=== PATIENT | male | born 2000 | race Caucasian/White ===

== ENCOUNTER 2022-07-02 02:47 | Emergency (ER) | payer OTHER ==
[~2022-07-02] VITALS: Ht 188 cm; Wt 97.7 kg
[2022-07-02 02:50] VITALS: BP 118/69; TEMP 97.8
[2022-07-02] MEDS ORDERED: AMOXICILLIN 8751 TAB PO (03:01)
[2022-07-02 04:05] VITALS: PULSE 86
== END 2022-07-02 04:05 | disposition home or self-care (01) ==
LOC: COL.ER 02:47
DX: S62.304A Unspecified fracture of fourth metacarpal bone, right hand, initial encounter for closed fracture (principal); S62.336A Displaced fracture of neck of fifth metacarpal bone, right hand, initial encounter for closed fracture; Z23 Encounter for immunization; W51.XXXA Accidental striking against or bumped into by another person, initial encounter